=== PATIENT | male | born 1980 ===

== ENCOUNTER 2020-12-12 14:48 | Emergency (ER) | payer SELFPAY ==
[~2020-12-12] VITALS: Ht 190.5 cm; Wt 76.0 kg
[2020-12-12 15:25] VITALS: BP 155/89
--- NOTE | 2020-12-12 16:51 | NUR ---
MANAGER INVENTORY CONTROL: PT TO ROOM FROM [facility]
--- NOTE | 2020-12-12 17:00 | NUR ---
PT RECIEVED INJURY TO FINGER, FRAMING NAIL WENT UNDER NAIL 2 WEEKS AGO. NOW SWOLLEN AND PAINFUL TODAY.
[2020-12-12] MEDS ORDERED: DIPH,PERTUSS(ACELL),TET VAC/PF 0.5 ML IM-VACC ONE ×2 (17:20→17:30)
--- NOTE | 2020-12-12 17:31 | NUR ---
TETANUS ADMIN. PT REQUESTING PAIN MEDS FOR FINGER
[2020-12-12] MEDS ORDERED: HYDROcodone/APAP 5/325 TABLET ONE (17:46)
--- NOTE | 2020-12-12 17:50 | NUR ---
MEDICATED FOR PAIN
[2020-12-12] MEDS ORDERED: HYDROcodone/APAP 5/325 TABLET PO ONE (18:00)
--- NOTE | 2020-12-12 18:44 | NUR ---
Patient given discharge instructions and they have confirmed that they understand the instructions. Patient ambulatory with steady gait.
== END 2020-12-12 18:46 | disposition home or self-care (01) ==
LOC: ED 18:40
DX: L03.011 Cellulitis of right finger (principal); M79.89 Other specified soft tissue disorders
CPT/HCPCS: 90471; 90715; 99283